=== PATIENT | female | born 1960 | race Two or more races ===

== ENCOUNTER 2016-12-02 09:53 | Outpatient (CLI) | payer BC ==
[2016-12-02 10:36] LABS: BASOPHILS % (AUTO) 0.7 % (0.0-2.0); DIFF TOTAL % 100 %; EOSINOPHILS # (AUTO) 0.1 /CMM (0.0-0.7); EOSINOPHILS % (AUTO) 1.8 % (0.0-6.0); HEMATOCRIT 41 % (33-45); HEMOGLOBIN 13.5 g/dL (11.5-14.8); LYMPHOCYTES # (AUTO) 1.2 /CMM (0.8-4.8); LYMPHOCYTES % (AUTO) 30.4 % (20.0-44.0); MEAN CORPUSCULAR HEMOGLOBIN 28 PG (26.0-33.0); MEAN CORPUSCULAR HGB CONC 33 g/dl (31.0-36.0); MEAN CORPUSCULAR VOLUME 85 fL (82-100); MONOCYTES # (AUTO) 0.2 /CMM (0.1-1.30); MONOCYTES % (AUTO) 4.8 % (2.0-12.0); NEUTROPHILS # (AUTO) 2.4 /CMM (1.8-8.9); NEUTROPHILS % (AUTO) 62.3 % (43.0-81.0); PLATELET COUNT (AUTO) 256 /CMM (150-450); RED BLOOD CELL COUNT(AUTO) 4.81 MIL/uL (4.0-5.2); WHITE BLOOD COUNT (AUTO) 3.8 K/uL (4.3-11.0)
[2016-12-02 10:53] LABS: ALBUMIN 4.2 g/dL (3.4-5.0); BILIRUBIN,TOTAL 0.5 mg/dL (0.2-1.0); CALCIUM, SERUM 9.3 mg/dL (8.5-10.1); CREATININE 0.8 mg/dL (0.6-1.3); POTASSIUM 4.5 mmol/L (3.5-5.1); TOTAL PROTEIN, SERUM 8.3 g/dL (6.4-8.2)
[2016-12-02 10:55] LABS: URIC ACID 4.5 mg/dL (2.6-7.2)
[2016-12-02 11:16] LABS: ERYTHROCYTE SEDIMENTATION RATE 21 MM/HR (0-30)
== END 2016-12-02 23:59 | disposition home or self-care (01) ==
LOC: LAB 09:53
PROVIDERS: ATTEND Family Medicine
DX: E78.5 Hyperlipidemia, unspecified (principal); E55.9 Vitamin D deficiency, unspecified
CPT/HCPCS: 36415; 73610-TC; 80053-TC; 80061-TC; 82306; 84550-TC; 85025-TC; 85652-TC

== ENCOUNTER → 2016-12-19 | Outpatient (CLI) | payer BC ==
[2016-12-19 11:36] LABS: BASOPHILS % (AUTO) 0.6 % (0.0-2.0); DIFF TOTAL % 100 %; EOSINOPHILS # (AUTO) 0.1 /CMM (0.0-0.7); EOSINOPHILS % (AUTO) 2.2 % (0.0-6.0); HEMATOCRIT 40 % (33-45); HEMOGLOBIN 13.1 g/dL (11.5-14.8); LYMPHOCYTES % (AUTO) 23.8 % (20.0-44.0); MEAN CORPUSCULAR HEMOGLOBIN 28 PG (26.0-33.0); MEAN CORPUSCULAR HGB CONC 33 g/dl (31.0-36.0); MEAN CORPUSCULAR VOLUME 85 fL (82-100); MONOCYTES # (AUTO) 0.2 /CMM (0.1-1.30); MONOCYTES % (AUTO) 4.3 % (2.0-12.0); NEUTROPHILS % (AUTO) 69.1 % (43.0-81.0); PLATELET COUNT (AUTO) 249 /CMM (150-450); RED BLOOD CELL COUNT(AUTO) 4.66 MIL/uL (4.0-5.2); WHITE BLOOD COUNT (AUTO) 4.3 K/uL (4.3-11.0)
[2016-12-19 11:56] LABS: ALBUMIN 4.1 g/dL (3.4-5.0); BILIRUBIN,TOTAL 0.4 mg/dL (0.2-1.0); CALCIUM, SERUM 9.1 mg/dL (8.5-10.1); CREATININE 0.8 mg/dL (0.6-1.3); POTASSIUM 3.8 mmol/L (3.5-5.1)
[2016-12-19 12:00] LABS: ERYTHROCYTE SEDIMENTATION RATE 23 MM/HR (0-30)
[2016-12-19 12:07] LABS: C-REACTIVE PROTEIN 0.4 mg/dL (0.0-0.9); THYROID STIMULATING HORMONE 0.967 uIU/mL (0.358-3.74); URIC ACID 4.4 mg/dL (2.6-7.2)
== END ==
LOC: LAB 09:18
PROVIDERS: ATTEND Family Medicine
DX: M06.9 Rheumatoid arthritis, unspecified (principal); R53.81 Other malaise
CPT/HCPCS: 36415; 80053-TC; 82728-TC; 83540-TC; 84436-TC; 84443-TC; 84550-TC; 85025-TC; 85652-TC; 86140-TC; 86431-TC

== ENCOUNTER 2017-01-30 10:55 | Outpatient (CLI) | payer BC ==
[2017-01-30 13:05] LABS: CHOLESTEROL 190 mg/dL (<200); HDL CHOLESTEROL 61 mg/dL (40-60); LDL 115 mg/dL (0-99); TRIGLYCERIDES 65 mg/dL (30-150)
== END 2017-01-30 23:59 | disposition home or self-care (01) ==
LOC: LAB 10:55
PROVIDERS: ATTEND Family Medicine
DX: Z00.01 Encounter for general adult medical examination with abnormal findings (principal); Z12.11 Encounter for screening for malignant neoplasm of colon; M06.9 Rheumatoid arthritis, unspecified; R06.00 Dyspnea, unspecified
CPT/HCPCS: 36415; 71020-TC; 80061-TC; 82272-TC

== ENCOUNTER 2017-03-20 08:39 | Outpatient (CLI) | payer BC ==
[2017-03-20 10:12] LABS: ALBUMIN 4.3 g/dL (3.4-5.0); BILIRUBIN,TOTAL 0.5 mg/dL (0.2-1.0); CALCIUM, SERUM 9.7 mg/dL (8.5-10.1); CREATININE 0.7 mg/dL (0.6-1.3); POTASSIUM 4.6 mmol/L (3.5-5.1); TOTAL PROTEIN, SERUM 8.4 g/dL (6.4-8.2)
== END 2017-03-20 23:59 | disposition home or self-care (01) ==
LOC: LAB 08:39
PROVIDERS: ATTEND Family Medicine
DX: E78.5 Hyperlipidemia, unspecified (principal); E55.9 Vitamin D deficiency, unspecified
CPT/HCPCS: 36415; 80053-TC; 82306

== ENCOUNTER 2017-06-01 11:26 | Outpatient (CLI) | payer BC ==
[2017-06-01 12:02] LABS: BASOPHILS % (AUTO) 0.5 % (0.0-2.0); EOSINOPHILS # (AUTO) 0.1 /CMM (0.0-0.7); EOSINOPHILS % (AUTO) 1.5 % (0.0-6.0); HEMATOCRIT 38 % (33-45); HEMOGLOBIN 12.6 g/dL (11.5-14.8); LYMPHOCYTES # (AUTO) 2.1 /CMM (0.8-4.8); LYMPHOCYTES % (AUTO) 36.7 % (20.0-44.0); MEAN CORPUSCULAR HEMOGLOBIN 29 PG (26.0-33.0); MEAN CORPUSCULAR HGB CONC 33 g/dl (31.0-36.0); MEAN CORPUSCULAR VOLUME 87 fL (82-100); MONOCYTES # (AUTO) 0.4 /CMM (0.1-1.30); MONOCYTES % (AUTO) 6.4 % (2.0-12.0); NEUTROPHILS # (AUTO) 3.1 /CMM (1.8-8.9); NEUTROPHILS % (AUTO) 54.9 % (43.0-81.0); PLATELET COUNT (AUTO) 281 /CMM (150-450); RDW COEFFICIENT OF VARIATION 13.3 (11.5-15.0); RED BLOOD CELL COUNT(AUTO) 4.37 MIL/uL (4.0-5.2); WHITE BLOOD COUNT (AUTO) 5.6 K/uL (4.3-11.0)
[2017-06-01 12:17] LABS: ALBUMIN 3.9 g/dL (3.4-5.0); BILIRUBIN,TOTAL 0.4 mg/dL (0.2-1.0); CREATININE 0.7 mg/dL (0.6-1.3); MAGNESIUM 2.1 mg/dL (1.8-2.4); POTASSIUM 3.6 mmol/L (3.5-5.1); TOTAL PROTEIN, SERUM 8.3 g/dL (6.4-8.2)
[2017-06-01 12:21] LABS: C-REACTIVE PROTEIN 0.9 mg/dL (0.0-0.9); THYROID STIMULATING HORMONE 1.865 uIU/mL (0.358-3.74)
== END 2017-06-01 23:59 | disposition home or self-care (01) ==
LOC: LAB 11:26
PROVIDERS: ATTEND Family Medicine
DX: M06.9 Rheumatoid arthritis, unspecified (principal); E78.5 Hyperlipidemia, unspecified; R79.89 Other specified abnormal findings of blood chemistry
CPT/HCPCS: 36415; 80053-TC; 80061-TC; 82306; 83735-TC; 84439-TC; 84443-TC; 85025-TC; 85652-TC; 86140-TC

== ENCOUNTER 2017-06-24 14:17 | Outpatient (CLI) | payer BC | END 2017-06-24 23:59 | disposition home or self-care (01) | LOC: RAD 14:17 | PROVIDERS: ATTEND Family Medicine | DX: S52.611D Displaced fracture of right ulna styloid process, subsequent encounter for closed fracture with routine healing (principal); X58.XXXD Exposure to other specified factors, subsequent encounter | CPT/HCPCS: 73130-TC ==

== ENCOUNTER 2017-07-10 09:58 | Outpatient (CLI) | payer BC | END 2017-07-10 23:59 | disposition home or self-care (01) | LOC: CT 09:58 | PROVIDERS: ATTEND Family Medicine | DX: M25.831 Other specified joint disorders, right wrist (principal) | CPT/HCPCS: 73200-TC ==

== ENCOUNTER 2017-07-17 08:18 | Outpatient (CLI) | payer BC ==
[2017-07-17 09:47] LABS: BASOPHILS % (AUTO) 0.6 % (0.0-2.0); HEMATOCRIT 38 % (33-45); HEMOGLOBIN 12.8 g/dL (11.5-14.8); LYMPHOCYTES # (AUTO) 1.2 /CMM (0.8-4.8); LYMPHOCYTES % (AUTO) 38.7 % (20.0-44.0); MEAN CORPUSCULAR HEMOGLOBIN 29 PG (26.0-33.0); MEAN CORPUSCULAR HGB CONC 33 g/dl (31.0-36.0); MEAN CORPUSCULAR VOLUME 85 fL (82-100); MONOCYTES # (AUTO) 0.3 /CMM (0.1-1.30); MONOCYTES % (AUTO) 8.8 % (2.0-12.0); NEUTROPHILS # (AUTO) 1.6 /CMM (1.8-8.9); NEUTROPHILS % (AUTO) 50.9 % (43.0-81.0); PLATELET COUNT (AUTO) 216 /CMM (150-450); RDW COEFFICIENT OF VARIATION 13.3 (11.5-15.0); WHITE BLOOD COUNT (AUTO) 3.1 K/uL (4.3-11.0)
[2017-07-17 09:53] LABS: ALBUMIN 4.1 g/dL (3.4-5.0); BILIRUBIN,TOTAL 0.5 mg/dL (0.2-1.0); C-REACTIVE PROTEIN 0.3 mg/dL (0.0-0.9); CALCIUM, SERUM 9.1 mg/dL (8.5-10.1); CREATININE 0.8 mg/dL (0.6-1.3); POTASSIUM 3.2 mmol/L (3.5-5.1); TOTAL PROTEIN, SERUM 8.3 g/dL (6.4-8.2); URIC ACID 4.2 mg/dL (2.6-7.2)
[2017-07-17 09:57] LABS: APPEARANCE,URINE CLEAR (CLEAR); BILIRUBIN,URINE NEGATIVE (NEGATIVE); BLOOD, URINE TRACE-INTA Ery/uL (NEGATIVE); COLOR,URINE YELLOW (YELLOW); KETONES,URINE NEGATIVE (NEGATIVE); LEUKOCYTE ESTERASE ,URINE NEGATIVE (NEGATIVE); NITRITE, URINE NEGATIVE (NEGATIVE); PH,URINE 5.5 (5.0-8.0); PROTEIN,URINE NEGATIVE (NEGATIVE); UGLUCOSE NEGATIVE (NEGATIVE); UROBILINOGEN,URINE 0.2 EU/dL (0.2)
[2017-07-17 11:25] LABS: BACTERIA,URINE Rare /HPF (None Seen); RBC,URINE 0-2 /HPF (0-2); SQUAMOUS EPITHELIAL CELL,UR Rare /HPF (None Seen); WBC,URINE 0-2 /HPF (0-3)
[2017-07-20 18:10] LABS: CCP IgG/IgA AB >250 units (0-19)
[2017-07-21 10:16] LABS: COMPLEMENT C3, SERUM 93 mg/dL (82-167); COMPLEMENT C4, SERUM 23 mg/dL (14-44)
== END 2017-07-17 23:59 | disposition home or self-care (01) ==
LOC: LAB 08:18
PROVIDERS: ATTEND Family Medicine
DX: M06.9 Rheumatoid arthritis, unspecified (principal)
CPT/HCPCS: 36415; 80053-TC; 81000-TC; 82550-TC; 84550-TC; 85025-TC; 85652-TC; 86140-TC; 86200; 86431-TC

== ENCOUNTER 2017-08-10 08:44 | Outpatient (CLI) | payer BC | END 2017-08-10 23:59 | disposition home or self-care (01) | LOC: MRI 08:44 | PROVIDERS: ATTEND Family Medicine | DX: M25.431 Effusion, right wrist (principal); S63.511A Sprain of carpal joint of right wrist, initial encounter; X58.XXXA Exposure to other specified factors, initial encounter; Y93.89 Activity, other specified; Y92.89 Other specified places as the place of occurrence of the external cause; Y99.8 Other external cause status; M24.131 Other articular cartilage disorders, right wrist | CPT/HCPCS: 73221-TC ==

== ENCOUNTER 2017-09-07 11:24 | Outpatient (CLI) | payer BC ==
[2017-09-07 12:05] LABS: BASOPHILS % (AUTO) 0.8 % (0.0-2.0); EOSINOPHILS # (AUTO) 0.1 /CMM (0.0-0.7); EOSINOPHILS % (AUTO) 1.4 % (0.0-6.0); HEMATOCRIT 39 % (33-45); HEMOGLOBIN 13.2 g/dL (11.5-14.8); LYMPHOCYTES # (AUTO) 1.6 /CMM (0.8-4.8); LYMPHOCYTES % (AUTO) 29.1 % (20.0-44.0); MEAN CORPUSCULAR HEMOGLOBIN 29 PG (26.0-33.0); MEAN CORPUSCULAR HGB CONC 34 g/dl (31.0-36.0); MEAN CORPUSCULAR VOLUME 86 fL (82-100); MONOCYTES # (AUTO) 0.3 /CMM (0.1-1.30); MONOCYTES % (AUTO) 5.9 % (2.0-12.0); NEUTROPHILS # (AUTO) 3.6 /CMM (1.8-8.9); NEUTROPHILS % (AUTO) 62.8 % (43.0-81.0); PLATELET COUNT (AUTO) 248 /CMM (150-450); RDW COEFFICIENT OF VARIATION 14.6 (11.5-15.0); WHITE BLOOD COUNT (AUTO) 5.6 K/uL (4.3-11.0)
[2017-09-07 12:16] LABS: APPEARANCE,URINE CLEAR (CLEAR); BILIRUBIN,URINE NEGATIVE (NEGATIVE); BLOOD, URINE TRACE Ery/uL (NEGATIVE); COLOR,URINE YELLOW (YELLOW); KETONES,URINE NEGATIVE (NEGATIVE); LEUKOCYTE ESTERASE ,URINE NEGATIVE (NEGATIVE); NITRITE, URINE NEGATIVE (NEGATIVE); PH,URINE 5.5 (5.0-8.0); PROTEIN,URINE NEGATIVE (NEGATIVE); UGLUCOSE NEGATIVE (NEGATIVE); UROBILINOGEN,URINE 0.2 EU/dL (0.2)
[2017-09-07 12:29] LABS: BACTERIA,URINE None seen /HPF (None Seen); RBC,URINE 0-2 /HPF (0-2); SQUAMOUS EPITHELIAL CELL,UR None Seen /HPF (None Seen); WBC,URINE NONE SEEN /HPF (0-3)
[2017-09-07 12:32] LABS: ALANINE AMINOTRANSFERASE 20 U/L (12-78); ALBUMIN 3.9 g/dL (3.4-5.0); ALKALINE PHOSPHATASE 52 U/L (46-116); ASPARTATE AMINOTRANSFERASE 22 U/L (15-37); BILIRUBIN,TOTAL 0.5 mg/dL (0.2-1.0); CALCIUM, SERUM 9.3 mg/dL (8.5-10.1); CARBON DIOXIDE 31 mmol/L (21-32); CHLORIDE 105 mmol/L (98-107); CREATININE 0.6 mg/dL (0.6-1.3); GLUCOSE 90 mg/dL (74-106); POTASSIUM 3.7 mmol/L (3.5-5.1); SODIUM SERUM 140 mmol/L (136-145); TOTAL PROTEIN, SERUM 7.9 g/dL (6.4-8.2); UREA NITROGEN, BLOOD 15 mg/dL (7-18)
[2017-09-07 12:43] LABS: FREE T4 (FREE THYROXINE) 0.98 ng/dL (0.76-1.46); THYROID STIMULATING HORMONE 1.671 uIU/mL (0.358-3.74)
[2017-09-07 13:06] LABS: C-REACTIVE PROTEIN < 0.2 mg/dL (0.0-0.9)
[2017-09-09 06:12] LABS: COMPLEMENT C3, SERUM 94 mg/dL (82-167); COMPLEMENT C4, SERUM 21 mg/dL (14-44)
== END 2017-09-07 23:59 | disposition home or self-care (01) ==
LOC: LAB 11:24
PROVIDERS: ATTEND Family Medicine
DX: M06.9 Rheumatoid arthritis, unspecified (principal)
CPT/HCPCS: 36415; 80053-TC; 81000-TC; 82306; 84439-TC; 84443-TC; 85025-TC; 85652-TC; 86140-TC; 86803; 87340

== ENCOUNTER → 2017-10-15 | Outpatient (CLI) | payer BC | END | disposition home or self-care (01) | LOC: RAD 13:54 | PROVIDERS: ATTEND Family Medicine | DX: M77.31 Calcaneal spur, right foot (principal); M25.572 Pain in left ankle and joints of left foot | CPT/HCPCS: 73630-TC ==

== ENCOUNTER 2018-02-16 11:30 | Outpatient (CLI) | payer BC ==
[2018-02-16 12:15] LABS: BASOPHILS % (AUTO) 0.5 % (0.0-2.0); EOSINOPHILS % (AUTO) 2.1 % (0.0-6.0); HEMATOCRIT 38 % (33-45); HEMOGLOBIN 12.9 g/dL (11.5-14.8); LYMPHOCYTES # (AUTO) 1.5 /CMM (0.8-4.8); LYMPHOCYTES % (AUTO) 33.8 % (20.0-44.0); MEAN CORPUSCULAR HGB CONC 34 g/dl (31.0-36.0); MEAN CORPUSCULAR VOLUME 88 fL (82-100); MONOCYTES # (AUTO) 0.3 /CMM (0.1-1.30); MONOCYTES % (AUTO) 6.2 % (2.0-12.0); NEUTROPHILS # (AUTO) 2.5 /CMM (1.8-8.9); NEUTROPHILS % (AUTO) 57.4 % (43.0-81.0); PLATELET COUNT (AUTO) 218 /CMM (150-450); RDW COEFFICIENT OF VARIATION 13.7 (11.5-15.0); RED BLOOD CELL COUNT(AUTO) 4.33 MIL/uL (4.0-5.2); WHITE BLOOD COUNT (AUTO) 4.4 K/uL (4.3-11.0)
[2018-02-16 12:18] LABS: APPEARANCE,URINE CLEAR (CLEAR); BILIRUBIN,URINE NEGATIVE (NEGATIVE); BLOOD, URINE NEGATIVE Ery/uL (NEGATIVE); COLOR,URINE YELLOW (YELLOW); KETONES,URINE NEGATIVE (NEGATIVE); LEUKOCYTE ESTERASE ,URINE NEGATIVE (NEGATIVE); NITRITE, URINE NEGATIVE (NEGATIVE); PH,URINE 6.5 (5.0-8.0); PROTEIN,URINE NEGATIVE (NEGATIVE); UGLUCOSE NEGATIVE (NEGATIVE); UROBILINOGEN,URINE 0.2 EU/dL (0.2)
[2018-02-16 12:31] LABS: ALBUMIN 4.3 g/dL (3.4-5.0); BILIRUBIN,TOTAL 0.6 mg/dL (0.2-1.0); CALCIUM, SERUM 9.1 mg/dL (8.5-10.1); CREATININE 0.6 mg/dL (0.6-1.3); POTASSIUM 3.9 mmol/L (3.5-5.1)
[2018-02-16 12:40] LABS: FREE T4 (FREE THYROXINE) 0.97 ng/dL (0.76-1.46); THYROID STIMULATING HORMONE 1.561 uIU/mL (0.358-3.74); URIC ACID 3.9 mg/dL (2.6-7.2)
[2018-02-17 08:14] LABS: C-REACTIVE PROTEIN, QUANT 0.8 mg/L (0.0-4.9)
[2018-02-17 17:53] LABS: OCCULT BLOOD STOOL NEGATIVE (NEGATIVE)
[2018-02-19 19:48] LABS: OCCULT BLOOD STOOL NEGATIVE (NEGATIVE)
[2018-02-22 14:39] LABS: OCCULT BLOOD STOOL NEGATIVE (NEGATIVE)
== END 2018-02-16 23:59 | disposition home or self-care (01) ==
LOC: LAB 11:30
PROVIDERS: ATTEND Family Medicine
DX: Z00.01 Encounter for general adult medical examination with abnormal findings (principal); Z11.59 Encounter for screening for other viral diseases; Z12.11 Encounter for screening for malignant neoplasm of colon; M06.9 Rheumatoid arthritis, unspecified; E78.00 Pure hypercholesterolemia, unspecified; E78.5 Hyperlipidemia, unspecified; R07.9 Chest pain, unspecified; R79.89 Other specified abnormal findings of blood chemistry
CPT/HCPCS: 36415; 71046; 80053-TC; 80061-TC; 81000-TC; 82272-TC; 82306; 84439-TC; 84443-TC; 84550-TC; 85025-TC; 85652-TC; 86140; 86803

== ENCOUNTER 2018-04-07 12:00 | Outpatient (CLI) | payer BC | END 2018-04-07 23:59 | disposition home or self-care (01) | LOC: RAD 12:00 | DX: M85.89 Other specified disorders of bone density and structure, multiple sites (principal) | CPT/HCPCS: 73070-TC; 73130-TC; 73560-TC ==

== ENCOUNTER 2018-06-04 08:52 | Outpatient (CLI) | payer BC ==
[2018-06-06 09:32] LABS: BASOPHILS % (AUTO) 0.5 % (0.0-2.0); HEMATOCRIT 38 % (33-45); HEMOGLOBIN 12.1 g/dL (11.5-14.8); LYMPHOCYTES # (AUTO) 1.1 /CMM (0.8-4.8); LYMPHOCYTES % (AUTO) 24.2 % (20.0-44.0); MEAN CORPUSCULAR HEMOGLOBIN 29 PG (26.0-33.0); MEAN CORPUSCULAR HGB CONC 32 g/dl (31.0-36.0); MEAN CORPUSCULAR VOLUME 90 fL (82-100); MONOCYTES # (AUTO) 0.3 /CMM (0.1-1.30); MONOCYTES % (AUTO) 7.1 % (2.0-12.0); NEUTROPHILS # (AUTO) 3.1 /CMM (1.8-8.9); NEUTROPHILS % (AUTO) 66.2 % (43.0-81.0); PLATELET COUNT (AUTO) 243 /CMM (150-450); RDW COEFFICIENT OF VARIATION 14.2 (11.5-15.0); RED BLOOD CELL COUNT(AUTO) 4.21 MIL/uL (4.0-5.2); WHITE BLOOD COUNT (AUTO) 4.6 K/uL (4.3-11.0)
[2018-06-06 09:43] LABS: C-REACTIVE PROTEIN 0.3 mg/dL (0.0-0.9)
[2018-06-06 09:50] LABS: ALBUMIN 3.6 g/dL (3.4-5.0); BILIRUBIN,TOTAL 0.2 mg/dL (0.2-1.0); CALCIUM, SERUM 8.1 mg/dL (8.5-10.1); CREATININE 0.8 mg/dL (0.6-1.3); POTASSIUM 3.9 mmol/L (3.5-5.1); TOTAL PROTEIN, SERUM 7.1 g/dL (6.4-8.2)
[2018-06-06 15:44] LABS: APPEARANCE,URINE Clear (CLEAR); BILIRUBIN,URINE Negative (NEGATIVE); BLOOD, URINE Negative Ery/uL (NEGATIVE); COLOR,URINE Yellow (YELLOW); KETONES,URINE Negative (NEGATIVE); LEUKOCYTE ESTERASE ,URINE Negative (NEGATIVE); NITRITE, URINE Negative (NEGATIVE); PH,URINE 6.5 (5.0-8.0); PROTEIN,URINE Negative (NEGATIVE); UGLUCOSE Negative (NEGATIVE); UROBILINOGEN,URINE 0.2 EU/dL (0.2)
== END 2018-06-04 23:59 | disposition home or self-care (01) ==
LOC: LAB 08:52
PROVIDERS: ATTEND Family Medicine
DX: M06.9 Rheumatoid arthritis, unspecified (principal)
CPT/HCPCS: 36415; 80053-TC; 81000-TC; 85025-TC; 85652-TC; 86140-TC

== ENCOUNTER 2018-10-13 13:30 | Emergency (ER) | payer BC, OTHER ==
[~2018-10-13] VITALS: Ht 167.6 cm; Wt 63.5 kg
--- NOTE | 2018-10-13 13:35 | NUR ---
BIB SELF W C/O COUGH AND CONGESTION x 3 DAYS, HAD FEVER LAST NIGHT 100.2, LAST TYLENOL @ 730AM TODAY. TO ER BED 4, VSS, AWAITING MD AL
--- NOTE | 2018-10-13 13:41 | NUR ---
DR PRICE AT BEDSIDE
[2018-10-13] MEDS ORDERED: ACETAMINOPHEN ES 500 MG TABLET PO ONE (14:00)
[2018-10-13] MEDS ORDERED: ACETAMINOPHEN ES 500 MG TABLET ONE (14:22)
--- NOTE | 2018-10-13 15:44 | NUR ---
Patient discharged to home in stable condition. Written and verbal after care instructions given. Patient verbalizes understanding of instruction.
[2018-10-13 15:45] VITALS: BP 118/76
== END 2018-10-13 15:47 | disposition home or self-care (01) ==
LOC: ER 13:32
DX: J09.X2 Influenza due to identified novel influenza A virus with other respiratory manifestations (principal)
CPT/HCPCS: 87804 ×2; 99283; A4606; Z7610; 87400

== ENCOUNTER 2018-10-25 13:07 | Outpatient (CLI) | payer BC ==
[2018-10-25 14:18] LABS: APPEARANCE,URINE CLEAR (CLEAR); BASOPHILS # (AUTO) 0.1 /CMM (0.0-0.2); BASOPHILS % (AUTO) 1.1 % (0.0-2.0); BILIRUBIN,URINE NEGATIVE (NEGATIVE); BLOOD, URINE NEGATIVE Ery/uL (NEGATIVE); COLOR,URINE YELLOW (YELLOW); EOSINOPHILS % (AUTO) 0.9 % (0.0-6.0); HEMATOCRIT 39 % (33-45); HEMOGLOBIN 12.9 g/dL (11.5-14.8); KETONES,URINE NEGATIVE (NEGATIVE); LEUKOCYTE ESTERASE ,URINE NEGATIVE (NEGATIVE); LYMPHOCYTES # (AUTO) 1.3 /CMM (0.8-4.8); LYMPHOCYTES % (AUTO) 27.7 % (20.0-44.0); MEAN CORPUSCULAR HGB CONC 33 g/dl (31.0-36.0); MEAN CORPUSCULAR VOLUME 88 fL (82-100); MONOCYTES # (AUTO) 0.2 /CMM (0.1-1.30); MONOCYTES % (AUTO) 5.4 % (2.0-12.0); NEUTROPHILS % (AUTO) 64.9 % (43.0-81.0); NITRITE, URINE NEGATIVE (NEGATIVE); PLATELET COUNT (AUTO) 293 /CMM (150-450); PROTEIN,URINE NEGATIVE (NEGATIVE); RED BLOOD CELL COUNT(AUTO) 4.38 MIL/uL (4.0-5.2); UGLUCOSE NEGATIVE (NEGATIVE); UROBILINOGEN,URINE 0.2 EU/dL (0.2); WHITE BLOOD COUNT (AUTO) 4.6 K/uL (4.3-11.0)
[2018-10-25 14:29] LABS: C-REACTIVE PROTEIN 0.3 mg/dL (0.0-0.9); URIC ACID 4.2 mg/dL (2.6-7.2)
[2018-10-25 14:32] LABS: BILIRUBIN,TOTAL 0.5 mg/dL (0.2-1.0); CREATININE 0.7 mg/dL (0.6-1.3); POTASSIUM 3.7 mmol/L (3.5-5.1); TOTAL PROTEIN, SERUM 7.6 g/dL (6.4-8.2)
[2018-10-27 20:09] LABS: CCP IgG/IgA AB >250 units (0-19)
== END 2018-10-25 23:59 | disposition home or self-care (01) ==
LOC: LAB 13:07
PROVIDERS: ATTEND Family Medicine
DX: M17.12 Unilateral primary osteoarthritis, left knee (principal); M06.9 Rheumatoid arthritis, unspecified
CPT/HCPCS: 36415; 80053-TC; 81000-TC; 82306; 84550-TC; 85025-TC; 85652-TC; 86140-TC; 86200; 86431-TC

== ENCOUNTER 2018-11-26 11:17 | Outpatient (CLI) | payer BC | END 2018-11-26 23:59 | disposition home or self-care (01) | LOC: LAB 11:17 | DX: M06.9 Rheumatoid arthritis, unspecified (principal) | CPT/HCPCS: 36415 ==

== ENCOUNTER 2018-12-17 08:15 | Outpatient (CLI) | payer BC ==
[2018-12-17 09:05] LABS: BASOPHILS % (AUTO) 0.7 % (0.0-2.0); HEMATOCRIT 38 % (33-45); HEMOGLOBIN 12.6 g/dL (11.5-14.8); LYMPHOCYTES # (AUTO) 1.5 /CMM (0.8-4.8); MEAN CORPUSCULAR HGB CONC 34 g/dl (31.0-36.0); MEAN CORPUSCULAR VOLUME 89 fL (82-100); MONOCYTES # (AUTO) 0.4 /CMM (0.1-1.30); NEUTROPHILS % (AUTO) 59.3 % (43.0-81.0); PLATELET COUNT (AUTO) 241 /CMM (150-450); RED BLOOD CELL COUNT(AUTO) 4.24 MIL/uL (4.0-5.2)
[2018-12-17 09:19] LABS: ALANINE AMINOTRANSFERASE 16 U/L (12-78); ALBUMIN 4.1 g/dL (3.4-5.0); ALKALINE PHOSPHATASE 53 U/L (46-116); ASPARTATE AMINOTRANSFERASE 24 U/L (15-37); BILIRUBIN,TOTAL 0.8 mg/dL (0.2-1.0); CARBON DIOXIDE 29 mmol/L (21-32); CHLORIDE 105 mmol/L (98-107); CREATININE 0.8 mg/dL (0.6-1.3); GLUCOSE 82 mg/dL (74-106); POTASSIUM 3.6 mmol/L (3.5-5.1); SODIUM SERUM 142 mmol/L (136-145); TOTAL PROTEIN, SERUM 7.7 g/dL (6.4-8.2); UREA NITROGEN, BLOOD 12 mg/dL (7-18)
[2018-12-17 09:21] LABS: APPEARANCE,URINE CLEAR (CLEAR); BILIRUBIN,URINE NEGATIVE (NEGATIVE); BLOOD, URINE NEGATIVE Ery/uL (NEGATIVE); COLOR,URINE YELLOW (YELLOW); KETONES,URINE NEGATIVE (NEGATIVE); LEUKOCYTE ESTERASE ,URINE NEGATIVE (NEGATIVE); NITRITE, URINE NEGATIVE (NEGATIVE); PH,URINE 5.5 (5.0-8.0); PROTEIN,URINE NEGATIVE (NEGATIVE); UGLUCOSE NEGATIVE (NEGATIVE); UROBILINOGEN,URINE 0.2 EU/dL (0.2)
[2018-12-17 09:41] LABS: C-REACTIVE PROTEIN < 0.2 mg/dL (0.0-0.9)
== END 2018-12-17 23:59 | disposition home or self-care (01) ==
LOC: LAB 08:15
DX: M60.9 Myositis, unspecified (principal)
CPT/HCPCS: 36415; 80053-TC; 81000-TC; 85025-TC; 85652-TC; 86140-TC

== ENCOUNTER 2019-07-20 11:00 | Outpatient (CLI) | payer BC ==
[2019-07-20 17:14] LABS: BASOPHILS % (AUTO) 0.5 % (0.0-2.0); EOSINOPHILS % (AUTO) 0.1 % (0.0-6.0); HEMATOCRIT 39 % (33-45); HEMOGLOBIN 13.1 g/dL (11.5-14.8); LYMPHOCYTES # (AUTO) 0.8 /CMM (0.8-4.8); LYMPHOCYTES % (AUTO) 20.1 % (20.0-44.0); MEAN CORPUSCULAR HGB CONC 34 g/dl (31.0-36.0); MEAN CORPUSCULAR VOLUME 90 fL (82-100); MONOCYTES # (AUTO) 0.2 /CMM (0.1-1.30); MONOCYTES % (AUTO) 4.9 % (2.0-12.0); NEUTROPHILS # (AUTO) 2.9 /CMM (1.8-8.9); NEUTROPHILS % (AUTO) 74.4 % (43.0-81.0); PLATELET COUNT (AUTO) 281 /CMM (150-450); RED BLOOD CELL COUNT(AUTO) 4.28 MIL/uL (4.0-5.2); WHITE BLOOD COUNT (AUTO) 3.9 K/uL (4.3-11.0)
[2019-07-20 17:32] LABS: CREATINE KINASE, TOTAL 82 U/L (26-192)
[2019-07-20 17:34] LABS: ALANINE AMINOTRANSFERASE 17 U/L (12-78); ALBUMIN 4.5 g/dL (3.4-5.0); ALKALINE PHOSPHATASE 64 U/L (46-116); ASPARTATE AMINOTRANSFERASE 28 U/L (15-37); BILIRUBIN,TOTAL 0.5 mg/dL (0.2-1.0); CALCIUM, SERUM 9.4 mg/dL (8.5-10.1); CARBON DIOXIDE 26 mmol/L (21-32); CHLORIDE 103 mmol/L (98-107); CREATININE 0.8 mg/dL (0.6-1.3); GLUCOSE 115 mg/dL (74-106); POTASSIUM 4.1 mmol/L (3.5-5.1); SODIUM SERUM 142 mmol/L (136-145); TOTAL PROTEIN, SERUM 8.5 g/dL (6.4-8.2); UREA NITROGEN, BLOOD 17 mg/dL (7-18)
[2019-07-20 17:59] LABS: APPEARANCE,URINE Clear (CLEAR); BILIRUBIN,URINE Negative (NEGATIVE); BLOOD, URINE Trace-intact Ery/uL (NEGATIVE); COLOR,URINE Yellow (YELLOW); KETONES,URINE Negative (NEGATIVE); LEUKOCYTE ESTERASE ,URINE Negative (NEGATIVE); NITRITE, URINE Negative (NEGATIVE); PROTEIN,URINE Negative (NEGATIVE); UGLUCOSE Negative (NEGATIVE); UROBILINOGEN,URINE 0.2 EU/dL (0.2)
[2019-07-20 18:09] LABS: BACTERIA,URINE Rare /HPF (None Seen); SQUAMOUS EPITHELIAL CELL,UR Few /HPF (None Seen); WBC,URINE NONE SEEN /HPF (0-3)
[2019-07-20 18:33] LABS: C-REACTIVE PROTEIN < 0.2 mg/dL (0.0-0.9)
[2019-07-21 11:07] LABS: PTH, INTACT 48 pg/mL (15-65)
== END 2019-07-20 23:59 | disposition home or self-care (01) ==
LOC: LAB 11:00
DX: M06.9 Rheumatoid arthritis, unspecified (principal); M19.90 Unspecified osteoarthritis, unspecified site
CPT/HCPCS: 36415; 80053-TC; 81000-TC; 82550-TC; 83970; 85025-TC; 85652-TC; 86140-TC; 86480; 86803; 87340

== ENCOUNTER 2019-09-13 14:44 | Outpatient (CLI) | payer BC | END 2019-09-13 23:59 | disposition home or self-care (01) | LOC: RAD 14:44 | PROVIDERS: ATTEND Family Medicine | DX: M25.561 Pain in right knee (principal); M25.562 Pain in left knee | CPT/HCPCS: 73562 ==

== ENCOUNTER 2019-11-07 12:18 | Outpatient (CLI) | payer BC ==
[2019-11-07 13:06] LABS: BASOPHILS % (AUTO) 0.5 % (0.0-2.0); EOSINOPHILS % (AUTO) 1.3 % (0.0-6.0); HEMATOCRIT 38 % (33-45); HEMOGLOBIN 12.6 g/dL (11.5-14.8); LYMPHOCYTES # (AUTO) 1.2 /CMM (0.8-4.8); MEAN CORPUSCULAR HGB CONC 33 g/dl (31.0-36.0); MEAN CORPUSCULAR VOLUME 92 fL (82-100); MONOCYTES # (AUTO) 0.2 /CMM (0.1-1.30); MONOCYTES % (AUTO) 4.8 % (2.0-12.0); NEUTROPHILS # (AUTO) 2.2 /CMM (1.8-8.9); NEUTROPHILS % (AUTO) 59.4 % (43.0-81.0); PLATELET COUNT (AUTO) 245 /CMM (150-450); RED BLOOD CELL COUNT(AUTO) 4.17 MIL/uL (4.0-5.2); WHITE BLOOD COUNT (AUTO) 3.6 K/uL (4.3-11.0)
[2019-11-07 13:23] LABS: C-REACTIVE PROTEIN < 0.2 mg/dL (0.0-0.9)
[2019-11-07 13:27] LABS: ALANINE AMINOTRANSFERASE 28 U/L (12-78); ALBUMIN 4.2 g/dL (3.4-5.0); ALKALINE PHOSPHATASE 51 U/L (46-116); ASPARTATE AMINOTRANSFERASE 37 U/L (15-37); CALCIUM, SERUM 9.5 mg/dL (8.5-10.1); CARBON DIOXIDE 28 mmol/L (21-32); CHLORIDE 105 mmol/L (98-107); CREATININE 0.8 mg/dL (0.6-1.3); GLUCOSE 126 mg/dL (74-106); POTASSIUM 3.4 mmol/L (3.5-5.1); SODIUM SERUM 140 mmol/L (136-145); UREA NITROGEN, BLOOD 17 mg/dL (7-18)
[2019-11-07 13:28] LABS: APPEARANCE,URINE CLEAR (CLEAR); BILIRUBIN,URINE NEGATIVE (NEGATIVE); BLOOD, URINE TRACE-INTA Ery/uL (NEGATIVE); COLOR,URINE YELLOW (YELLOW); KETONES,URINE TRACE (NEGATIVE); LEUKOCYTE ESTERASE ,URINE NEGATIVE (NEGATIVE); NITRITE, URINE NEGATIVE (NEGATIVE); PH,URINE 5.5 (5.0-8.0); PROTEIN,URINE NEGATIVE (NEGATIVE); UGLUCOSE NEGATIVE (NEGATIVE); UROBILINOGEN,URINE 0.2 EU/dL (0.2)
[2019-11-07 13:37] LABS: BACTERIA,URINE Few /HPF (None Seen); MUCUS,URINE Few /LPF (None Seen); RBC,URINE 0-2 /HPF (0-2); SQUAMOUS EPITHELIAL CELL,UR Rare /HPF (None Seen); WBC,URINE 0-2 /HPF (0-3)
== END 2019-11-07 23:59 | disposition home or self-care (01) ==
LOC: LAB 12:18
DX: M06.9 Rheumatoid arthritis, unspecified (principal)
CPT/HCPCS: 36415; 73120-TC; 80053-TC; 81000-TC; 85025-TC; 85652-TC; 86140-TC; 86200; 86431-TC

== ENCOUNTER 2020-04-04 20:56 | Emergency (ER) | payer BC, OTHER | END 2020-04-04 21:31 | disposition home or self-care (01) | LOC: ER 20:56 | DX: Z11.59 Encounter for screening for other viral diseases (principal) | CPT/HCPCS: 99283; C9803; U0003 ==

== ENCOUNTER 2020-04-11 16:00 | Emergency (ER) | payer OTHER ==
[~2020-04-11] VITALS: Ht 167.6 cm; Wt 63.5 kg
[2020-04-11 16:10] VITALS: BP 92/65
--- NOTE | 2020-04-11 16:42 | NUR ---
CORONAVIRUS SWAB DONE AND SENT TO LAB
== END 2020-04-11 16:46 | disposition home or self-care (01) ==
LOC: ER 16:00
DX: Z03.818 Encounter for observation for suspected exposure to other biological agents ruled out (principal)
CPT/HCPCS: 99283; C9803; U0003

== ENCOUNTER 2020-04-28 16:58 | Emergency (ER) | payer OTHER ==
[~2020-04-28] VITALS: Ht 167.6 cm; Wt 63.5 kg
[2020-04-28 17:02] VITALS: BP 122/75
--- NOTE | 2020-04-28 17:31 | NUR ---
COVID SWAB OBTAINED AND SENT TO LAB.
--- NOTE | 2020-04-28 18:03 | NUR ---
Patient discharged to home in stable condition. Written and verbal after care instructions given. Patient verbalizes understanding of instruction.
== END 2020-04-28 18:04 | disposition home or self-care (01) ==
LOC: ER 17:00
DX: Z03.818 Encounter for observation for suspected exposure to other biological agents ruled out (principal)
CPT/HCPCS: 99283; C9803; U0003

== ENCOUNTER 2020-05-02 17:26 | Emergency (ER) | payer OTHER ==
[~2020-05-02] VITALS: Ht 167.6 cm; Wt 63.5 kg
[2020-05-02 17:30] VITALS: BP 106/78
== END 2020-05-02 18:09 | disposition home or self-care (01) ==
LOC: ER 17:26
DX: Z11.59 Encounter for screening for other viral diseases (principal); M06.9 Rheumatoid arthritis, unspecified
CPT/HCPCS: 99283; C9803; U0003

== ENCOUNTER 2020-05-19 11:13 | Emergency (ER) | payer OTHER ==
[~2020-05-19] VITALS: Ht 170.2 cm; Wt 63.5 kg
[2020-05-19 11:16] VITALS: BP 135/81
== END 2020-05-19 11:32 | disposition home or self-care (01) ==
LOC: ER 11:14
DX: Z11.59 Encounter for screening for other viral diseases (principal); M06.9 Rheumatoid arthritis, unspecified
CPT/HCPCS: 99283; C9803; U0003

== ENCOUNTER 2020-05-25 15:47 | Emergency (ER) | payer OTHER ==
[~2020-05-25] VITALS: Ht 167.6 cm; Wt 64.9 kg
[2020-05-25 16:01] VITALS: BP 100/65
== END 2020-05-25 16:33 | disposition home or self-care (01) ==
LOC: ER 15:47
DX: Z00.8 Encounter for other general examination (principal); Z20.828 Contact with and (suspected) exposure to other viral communicable diseases; M06.9 Rheumatoid arthritis, unspecified
CPT/HCPCS: 99283; C9803; U0003

== ENCOUNTER 2020-06-04 12:01 | Outpatient (CLI) | payer BC ==
[2020-06-04 14:25] LABS: APPEARANCE,URINE CLEAR (CLEAR); BILIRUBIN,URINE NEGATIVE (NEGATIVE); BLOOD, URINE NEGATIVE Ery/uL (NEGATIVE); COLOR,URINE YELLOW (YELLOW); KETONES,URINE NEGATIVE (NEGATIVE); LEUKOCYTE ESTERASE ,URINE NEGATIVE (NEGATIVE); NITRITE, URINE NEGATIVE (NEGATIVE); PROTEIN,URINE NEGATIVE (NEGATIVE); UGLUCOSE NEGATIVE (NEGATIVE); UROBILINOGEN,URINE 0.2 EU/dL (0.2)
[2020-06-04 14:28] LABS: BASOPHILS % (AUTO) 0.7 % (0.0-2.0); EOSINOPHILS % (AUTO) 1.7 % (0.0-6.0); HEMATOCRIT 39 % (33-45); HEMOGLOBIN 12.9 g/dL (11.5-14.8); LYMPHOCYTES # (AUTO) 1.1 /CMM (0.8-4.8); LYMPHOCYTES % (AUTO) 35.4 % (20.0-44.0); MEAN CORPUSCULAR HGB CONC 33 g/dl (31.0-36.0); MEAN CORPUSCULAR VOLUME 93 fL (82-100); MONOCYTES # (AUTO) 0.2 /CMM (0.1-1.30); MONOCYTES % (AUTO) 7.8 % (2.0-12.0); NEUTROPHILS # (AUTO) 1.7 /CMM (1.8-8.9); NEUTROPHILS % (AUTO) 54.4 % (43.0-81.0); PLATELET COUNT (AUTO) 221 /CMM (150-450); RED BLOOD CELL COUNT(AUTO) 4.21 MIL/uL (4.0-5.2); WHITE BLOOD COUNT (AUTO) 3.1 K/uL (4.3-11.0)
[2020-06-04 14:51] LABS: C-REACTIVE PROTEIN < 0.2 mg/dL (0.0-0.9)
[2020-06-04 15:17] LABS: ALANINE AMINOTRANSFERASE 30 U/L (12-78); ALBUMIN 3.9 g/dL (3.4-5.0); ALKALINE PHOSPHATASE 56 U/L (46-116); ASPARTATE AMINOTRANSFERASE 33 U/L (15-37); BILIRUBIN,TOTAL 0.5 mg/dL (0.2-1.0); CALCIUM, SERUM 9.3 mg/dL (8.5-10.1); CARBON DIOXIDE 29 mmol/L (21-32); CHLORIDE 104 mmol/L (98-107); CREATININE 0.6 mg/dL (0.6-1.3); GLUCOSE 84 mg/dL (74-106); POTASSIUM 3.6 mmol/L (3.5-5.1); SODIUM SERUM 141 mmol/L (136-145); TOTAL PROTEIN, SERUM 7.8 g/dL (6.4-8.2); UREA NITROGEN, BLOOD 20 mg/dL (7-18)
[2020-06-05 08:20] LABS: COMPLEMENT C3, SERUM 95 mg/dL (82-167); COMPLEMENT C4, SERUM 18 mg/dL (14-44)
[2020-06-05 11:10] LABS: PTH, INTACT 32 pg/mL (15-65)
[2020-06-05 19:07] LABS: *ANA ANTI-CENTROMERE B AB <0.2 AI (0.0-0.9); *ANA ANTI-DNA(DS) AB, QN 1 IU/mL (0-9); *ANA ANTI-JO-1 <0.2 AI (0.0-0.9); *ANA ANTICHROMATIN ANTIBODY <0.2 AI (0.0-0.9); *ANA RNP ANTIBODIES 0.2 AI (0.0-0.9); *ANA SJOGREN'S ANTI-SS-A <0.2 AI (0.0-0.9); *ANA SJOGREN'S ANTI-SS-B <0.2 AI (0.0-0.9); *ANAANTI-SCLERODERMA-70 AB 0.3 AI (0.0-0.9); *ANASMITH AB <0.2 AI (0.0-0.9)
[2020-06-06 22:09] LABS: CCP IgG/IgA AB >250 units (0-19)
== END 2020-06-04 23:59 | disposition home or self-care (01) ==
LOC: LAB 12:01
DX: M19.041 Primary osteoarthritis, right hand (principal); M81.0 Age-related osteoporosis without current pathological fracture; M06.9 Rheumatoid arthritis, unspecified
CPT/HCPCS: 36415; 73070-TC; 73100-TC; 73120-TC; 73560-TC; 80053-TC; 81000-TC; 82306; 83970; 85025-TC; 85652-TC; 86140-TC; 86200; 86225; 86235; 86431-TC; 86480; 86803; 87340

== ENCOUNTER 2020-06-09 19:44 | Emergency (ER) | payer BC, OTHER ==
[~2020-06-09] VITALS: Ht 167.6 cm; Wt 64.9 kg
[2020-06-09 19:45] VITALS: BP 134/62
--- NOTE | 2020-06-09 20:06 | NUR ---
COVID SWAB COLLECTED AND SENT TO LAB.
== END 2020-06-09 20:14 | disposition home or self-care (01) ==
LOC: ER 19:46
DX: Z20.828 Contact with and (suspected) exposure to other viral communicable diseases (principal); M06.9 Rheumatoid arthritis, unspecified
CPT/HCPCS: 99283; C9803; U0003

== ENCOUNTER 2020-06-16 07:54 | Outpatient (CLI) | payer BC, OTHER ==
[2020-06-16 14:20] LABS: THYROID STIMULATING HORMONE 2.053 uIU/mL (0.358-3.74)
[2020-06-17 08:11] LABS: T3, FREE 2.8 pg/mL (2.0-4.4)
== END 2020-06-16 23:59 | disposition home or self-care (01) ==
LOC: LAB 07:54
PROVIDERS: ATTEND Family Medicine
DX: Z00.01 Encounter for general adult medical examination with abnormal findings (principal); Z79.899 Other long term (current) drug therapy; Z78.0 Asymptomatic menopausal state
CPT/HCPCS: 36415; 80061-TC; 82306; 84439-TC; 84443-TC; 84481

== ENCOUNTER 2020-06-16 18:43 | Emergency (ER) | payer BC, OTHER ==
[~2020-06-16] VITALS: Ht 167.6 cm; Wt 64.9 kg
[2020-06-16 18:45] VITALS: BP 145/71
--- NOTE | 2020-06-16 18:50 | NUR ---
COVID SPECIMEN OBTAINED AND SENT TO LAB.
--- NOTE | 2020-06-16 18:54 | NUR ---
Patient discharged to home in stable condition. Written and verbal after care instructions given. Patient verbalizes understanding of instruction.
== END 2020-06-16 18:54 | disposition home or self-care (01) ==
LOC: ER 18:44
DX: Z20.828 Contact with and (suspected) exposure to other viral communicable diseases (principal); M06.9 Rheumatoid arthritis, unspecified; R03.0 Elevated blood-pressure reading, without diagnosis of hypertension
CPT/HCPCS: 99283; C9803; U0003

== ENCOUNTER 2020-06-29 10:13 | Emergency (ER) | payer OTHER ==
[~2020-06-29] VITALS: Ht 167.6 cm; Wt 65.8 kg
[2020-06-29 10:17] VITALS: BP 100/67
== END 2020-06-29 10:41 | disposition home or self-care (01) ==
LOC: ER 10:14
DX: Z20.828 Contact with and (suspected) exposure to other viral communicable diseases (principal)
CPT/HCPCS: 99283; C9803; U0003

== ENCOUNTER 2020-07-07 08:00 | Emergency (ER) | payer OTHER ==
[~2020-07-07] VITALS: Ht 167.6 cm; Wt 63.5 kg
[2020-07-07 08:04] VITALS: BP 110/60
--- NOTE | 2020-07-07 08:25 | NUR ---
COLINID SWABBED AND SENT TO LAB. DISCHARGED IN STABLE CONDITION.
== END 2020-07-07 08:24 | disposition home or self-care (01) ==
LOC: ER 08:02
DX: Z20.828 Contact with and (suspected) exposure to other viral communicable diseases (principal); M06.9 Rheumatoid arthritis, unspecified
CPT/HCPCS: 99283; C9803; U0003

== ENCOUNTER 2020-07-14 09:01 | Emergency (ER) | payer OTHER ==
[~2020-07-14] VITALS: Ht 167.6 cm; Wt 63.5 kg
[2020-07-14 09:05] VITALS: BP 135/81
--- NOTE | 2020-07-14 09:09 | NUR ---
CALLED LAB FOR COVID PCR.
--- NOTE | 2020-07-14 09:47 | NUR ---
Patient discharged to home in stable condition. Written and verbal after care instructions given. Patient verbalizes understanding of instruction.
== END 2020-07-14 09:49 | disposition home or self-care (01) ==
LOC: ER 09:03
DX: Z20.828 Contact with and (suspected) exposure to other viral communicable diseases (principal); M06.9 Rheumatoid arthritis, unspecified
CPT/HCPCS: 99283; C9803; U0003

== ENCOUNTER 2020-07-20 10:17 | Emergency (ER) | payer OTHER ==
[~2020-07-20] VITALS: Ht 167.6 cm; Wt 63.5 kg
[2020-07-20 10:17] VITALS: BP 123/66
== END 2020-07-20 11:40 | disposition home or self-care (01) ==
LOC: ER 10:20
DX: Z20.828 Contact with and (suspected) exposure to other viral communicable diseases (principal); M06.9 Rheumatoid arthritis, unspecified
CPT/HCPCS: 99283; C9803; U0003

== ENCOUNTER 2020-07-27 10:03 | Emergency (ER) | payer OTHER ==
[~2020-07-27] VITALS: Ht 167.6 cm; Wt 63.5 kg
[2020-07-27 10:05] VITALS: BP 110/61
--- NOTE | 2020-07-27 10:26 | NUR ---
covid swab sent. Patient discharged to home in stable condition. Written and verbal after care instructions given. Patient verbalizes understanding of instruction.
== END 2020-07-27 10:27 | disposition home or self-care (01) ==
LOC: ER 10:04
DX: Z20.828 Contact with and (suspected) exposure to other viral communicable diseases (principal); M06.9 Rheumatoid arthritis, unspecified
CPT/HCPCS: 99283; C9803; U0003

== ENCOUNTER 2020-08-04 10:34 | Emergency (ER) | payer OTHER ==
[~2020-08-04] VITALS: Ht 167.6 cm; Wt 63.5 kg
[2020-08-04 10:42] VITALS: BP 120/81
--- NOTE | 2020-08-04 11:11 | NUR ---
Patient discharged to home in stable condition. Written and verbal after care instructions given. Patient verbalizes understanding of instruction.
== END 2020-08-04 11:12 | disposition home or self-care (01) ==
LOC: ER 10:36
DX: Z20.828 Contact with and (suspected) exposure to other viral communicable diseases (principal); M06.9 Rheumatoid arthritis, unspecified
CPT/HCPCS: 99283; C9803; U0003

== ENCOUNTER 2020-08-10 15:11 | Emergency (ER) | payer OTHER ==
[~2020-08-10] VITALS: Ht 167.6 cm; Wt 64.0 kg
[2020-08-10 15:20] VITALS: BP 123/78
== END 2020-08-10 16:03 | disposition home or self-care (01) ==
LOC: ER 15:17
DX: Z20.828 Contact with and (suspected) exposure to other viral communicable diseases (principal); M06.9 Rheumatoid arthritis, unspecified
CPT/HCPCS: 99283; C9803; U0003

== ENCOUNTER 2020-08-17 20:31 | Emergency (ER) | payer OTHER ==
[~2020-08-17] VITALS: Ht 160 cm; Wt 65.8 kg
[2020-08-17 20:37] VITALS: BP 138/78
== END 2020-08-17 20:46 | disposition home or self-care (01) ==
LOC: ER 20:33
DX: Z20.828 Contact with and (suspected) exposure to other viral communicable diseases (principal); M06.9 Rheumatoid arthritis, unspecified
CPT/HCPCS: 99283; U0003; C9803

== ENCOUNTER 2020-08-25 11:20 | Emergency (ER) | payer OTHER ==
[~2020-08-25] VITALS: Ht 167.6 cm; Wt 63.5 kg
[2020-08-25 11:20] VITALS: BP 109/56
--- NOTE | 2020-08-25 11:36 | NUR ---
covid 19 swab collected and sent to lab
--- NOTE | 2020-08-25 11:37 | NUR ---
Patient discharged to home in stable condition. Written and verbal after care instructions given. Patient verbalizes understanding of instruction.
== END 2020-08-25 11:37 | disposition home or self-care (01) ==
LOC: ER 11:21
DX: Z20.828 Contact with and (suspected) exposure to other viral communicable diseases (principal); M06.9 Rheumatoid arthritis, unspecified
CPT/HCPCS: 99283; C9803; U0003

== ENCOUNTER 2020-09-01 10:52 | Emergency (ER) | payer OTHER ==
[~2020-09-01] VITALS: Ht 167.6 cm; Wt 63.5 kg
[2020-09-01 10:55] VITALS: BP 123/71
== END 2020-09-01 11:16 | disposition home or self-care (01) ==
LOC: ER 10:56
DX: Z20.828 Contact with and (suspected) exposure to other viral communicable diseases (principal); M06.9 Rheumatoid arthritis, unspecified
CPT/HCPCS: 99283; C9803; U0003

== ENCOUNTER 2020-09-15 13:17 | Emergency (ER) | payer OTHER ==
[~2020-09-15] VITALS: Ht 167.6 cm; Wt 63.5 kg
[2020-09-15 13:20] VITALS: BP 134/81
--- NOTE | 2020-09-15 13:41 | NUR ---
COVID SWAB SENT. Patient discharged to home in stable condition. Written and verbal after care instructions given. Patient verbalizes understanding of instruction.
== END 2020-09-15 13:41 | disposition home or self-care (01) ==
LOC: ER 13:18
DX: Z20.828 Contact with and (suspected) exposure to other viral communicable diseases (principal); M06.9 Rheumatoid arthritis, unspecified
CPT/HCPCS: 99283; C9803; U0003

== ENCOUNTER 2021-01-05 11:17 | Emergency (ER) | payer OTHER ==
[~2021-01-05] VITALS: Ht 165.1 cm; Wt 66.7 kg
[2021-01-05 11:19] VITALS: BP 112/56
--- NOTE | 2021-01-05 11:29 | NUR ---
Patient discharged to home in stable condition. Written and verbal after care instructions given. Patient verbalizes understanding of instruction. Pt ambulatory with a steady gait
== END 2021-01-05 23:00 | disposition home or self-care (01) ==
LOC: ER 11:18
DX: Z20.822 Contact with and (suspected) exposure to COVID-19 (principal)
CPT/HCPCS: 99283; C9803; U0003

== ENCOUNTER → 2021-01-12 | Emergency (ER) | payer OTHER ==
[~2021-01-12] VITALS: Ht 165.1 cm; Wt 66.7 kg
[2021-01-12 15:12] VITALS: BP 121/68
--- NOTE | 2021-01-12 15:20 | NUR ---
COVID SPECIMEN OBTAINED AND SENT TO LAB.
--- NOTE | 2021-01-12 15:22 | NUR ---
Patient discharged to home in stable condition. Written and verbal after care instructions given. Patient verbalizes understanding of instruction.
--- NOTE | 2021-01-12 15:24 | NUR ---
[facility]
== END | disposition home or self-care (01) ==
LOC: ER 18:38
DX: Z20.822 Contact with and (suspected) exposure to COVID-19 (principal); M06.9 Rheumatoid arthritis, unspecified
CPT/HCPCS: 99283; C9803; U0003

== ENCOUNTER 2021-01-19 15:05 | Emergency (ER) | payer OTHER ==
[~2021-01-19] VITALS: Ht 165.1 cm; Wt 81.6 kg
[2021-01-19 15:15] VITALS: BP 100/60
--- NOTE | 2021-01-19 15:25 | NUR ---
Patient discharged to home in stable condition. Written and verbal after care instructions given. Patient verbalizes understanding of instruction.
== END 2021-01-19 15:25 | disposition home or self-care (01) ==
LOC: ER 15:07
DX: Z20.822 Contact with and (suspected) exposure to COVID-19 (principal); M06.9 Rheumatoid arthritis, unspecified
CPT/HCPCS: 99283; C9803; U0003

== ENCOUNTER 2021-01-26 10:44 | Emergency (ER) | payer OTHER ==
[~2021-01-26] VITALS: Ht 165.1 cm; Wt 66.7 kg
[2021-01-26 10:47] VITALS: BP 106/60
--- NOTE | 2021-01-26 10:54 | NUR ---
Patient discharged to home in stable condition. Written and verbal after care instructions given. Patient verbalizes understanding of instruction.
== END 2021-01-26 10:55 | disposition home or self-care (01) ==
LOC: ER 10:45
DX: Z20.822 Contact with and (suspected) exposure to COVID-19 (principal); M06.9 Rheumatoid arthritis, unspecified
CPT/HCPCS: 99283; C9803; U0003

== ENCOUNTER 2021-02-02 10:21 | Emergency (ER) | payer OTHER ==
[~2021-02-02] VITALS: Ht 165.1 cm; Wt 66.7 kg
[2021-02-02 10:23] VITALS: BP 103/60
== END 2021-02-02 10:40 | disposition home or self-care (01) ==
LOC: ER 10:22
DX: Z20.822 Contact with and (suspected) exposure to COVID-19 (principal); M06.9 Rheumatoid arthritis, unspecified
CPT/HCPCS: 99283; C9803; U0003

== ENCOUNTER 2021-02-09 11:46 | Emergency (ER) | payer OTHER ==
[~2021-02-09] VITALS: Ht 165.1 cm; Wt 66.7 kg
[2021-02-09 11:49] VITALS: BP 106/60
--- NOTE | 2021-02-09 12:05 | NUR ---
Patient discharged to home in stable condition. Written and verbal after care instructions given. Patient verbalizes understanding of instruction.
== END 2021-02-09 12:05 | disposition home or self-care (01) ==
LOC: ER 11:47
DX: Z20.822 Contact with and (suspected) exposure to COVID-19 (principal); M06.9 Rheumatoid arthritis, unspecified
CPT/HCPCS: 99283; C9803; U0003

== ENCOUNTER 2021-02-16 11:53 | Emergency (ER) | payer OTHER ==
[~2021-02-16] VITALS: Ht 165.1 cm; Wt 66.7 kg
[2021-02-16 11:54] VITALS: BP 106/60
--- NOTE | 2021-02-16 11:56 | NUR ---
THE PATIENT BIBS FOR ROUTINE COVID TEST, DENIES ANY SYMPTOMS. RESPIRATION REGULAR AND UNLABORED.
== END 2021-02-16 12:19 | disposition home or self-care (01) ==
LOC: ER 12:14
DX: Z20.822 Contact with and (suspected) exposure to COVID-19 (principal); M06.9 Rheumatoid arthritis, unspecified
CPT/HCPCS: 99283; C9803; U0003

== ENCOUNTER 2021-02-23 10:44 | Emergency (ER) | payer OTHER ==
[~2021-02-23] VITALS: Ht 165.1 cm; Wt 66.7 kg
[2021-02-23 10:45] VITALS: BP 102/60
--- NOTE | 2021-02-23 11:05 | NUR ---
Patient discharged to home in stable condition. Written and verbal after care instructions given. Patient verbalizes understanding of instruction.
== END 2021-02-23 11:06 | disposition home or self-care (01) ==
LOC: ER 10:46
DX: Z20.822 Contact with and (suspected) exposure to COVID-19 (principal); M06.9 Rheumatoid arthritis, unspecified
CPT/HCPCS: 99283; C9803; U0003

== ENCOUNTER 2021-03-02 11:12 | Emergency (ER) | payer OTHER ==
[~2021-03-02] VITALS: Ht 165.1 cm; Wt 66.2 kg
[2021-03-02 11:30] VITALS: BP 105/56
--- NOTE | 2021-03-02 11:35 | NUR ---
Patient discharged to home in stable condition. Written and verbal after care instructions given. Patient verbalizes understanding of instruction.
== END 2021-03-02 11:35 | disposition home or self-care (01) ==
LOC: ER 11:14
DX: Z20.822 Contact with and (suspected) exposure to COVID-19 (principal); M06.9 Rheumatoid arthritis, unspecified
CPT/HCPCS: 99283; C9803; U0003

== ENCOUNTER 2021-03-09 12:16 | Emergency (ER) | payer OTHER ==
[~2021-03-09] VITALS: Ht 165.1 cm; Wt 66.7 kg
[2021-03-09 12:16] VITALS: BP 104/68
--- NOTE | 2021-03-09 12:37 | NUR ---
Patient discharged to home in stable condition. Written and verbal after care instructions given. Patient verbalizes understanding of instruction.
== END 2021-03-09 12:37 | disposition home or self-care (01) ==
LOC: ER 12:17
DX: Z20.822 Contact with and (suspected) exposure to COVID-19 (principal); M06.9 Rheumatoid arthritis, unspecified
CPT/HCPCS: 99283; C9803; U0003

== ENCOUNTER 2021-03-23 11:16 | Emergency (ER) | payer OTHER ==
[~2021-03-23] VITALS: Ht 165.1 cm; Wt 66.7 kg
[2021-03-23 11:24] VITALS: BP 106/62
== END 2021-03-23 11:52 | disposition home or self-care (01) ==
LOC: ER 11:25
DX: Z20.822 Contact with and (suspected) exposure to COVID-19 (principal); M06.9 Rheumatoid arthritis, unspecified
CPT/HCPCS: 99283; C9803; U0003

== ENCOUNTER 2021-03-30 11:33 | Emergency (ER) | payer OTHER ==
[~2021-03-30] VITALS: Ht 165.1 cm; Wt 66.7 kg
[2021-03-30 11:35] VITALS: BP 107/60
== END 2021-03-30 12:02 | disposition home or self-care (01) ==
LOC: ER 11:33
DX: Z20.822 Contact with and (suspected) exposure to COVID-19 (principal); M06.9 Rheumatoid arthritis, unspecified
CPT/HCPCS: 99283; C9803; U0003

== ENCOUNTER 2021-04-03 14:05 | Emergency (ER) | payer OTHER ==
[~2021-04-03] VITALS: Ht 165.1 cm; Wt 70.3 kg
[2021-04-03 14:09] VITALS: BP 127/81
--- NOTE | 2021-04-03 15:01 | NUR ---
COVID SWAB DONE AND SENT TO LAB
--- NOTE | 2021-04-03 15:01 | NUR ---
Patient discharged to home in stable condition. Written and verbal after care instructions given. Patient verbalizes understanding of instruction. Pt ambulatory with a steady gait
== END 2021-04-03 15:01 | disposition home or self-care (01) ==
LOC: ER 14:06
DX: Z20.822 Contact with and (suspected) exposure to COVID-19 (principal); M06.9 Rheumatoid arthritis, unspecified; M19.90 Unspecified osteoarthritis, unspecified site
CPT/HCPCS: 99283; C9803; U0003

== ENCOUNTER 2021-04-13 18:04 | Emergency (ER) | payer OTHER ==
[~2021-04-13] VITALS: Ht 166.4 cm; Wt 67.1 kg
[2021-04-13 18:22] VITALS: BP 102/60
--- NOTE | 2021-04-13 18:53 | NUR ---
covid antigen cancelled.
--- NOTE | 2021-04-13 18:55 | NUR ---
Patient discharged to home in stable condition. Written and verbal after care instructions given. Patient verbalizes understanding of instruction. Pt ambulatory with a steady gait
== END 2021-04-13 18:56 | disposition home or self-care (01) ==
LOC: EDUNIT# 18:04 → ER 18:08
DX: Z20.822 Contact with and (suspected) exposure to COVID-19 (principal); M06.9 Rheumatoid arthritis, unspecified
CPT/HCPCS: 99283; C9803; U0003